=== PATIENT | female | born 1960 | race African-American/Black ===

== ENCOUNTER 2024-05-15 20:33 | Emergency (ER) | payer OTHER, MEDICAID ==
[~2024-05-15] VITALS: Ht 160 cm; Wt 61.0 kg
[2024-05-15 20:42] VITALS: O2SAT 100
[2024-05-15] MEDS ORDERED: ACETAMINOPHEN 325MG TABLET PO STA (21:58)
[2024-05-15 22:33] LABS: DIFFERENTIAL COMMENT 1; HEMATOCRIT. 35.1 % (36.0-48.0); HEMOGLOBIN. 11.4 g/dL (12.0-16.0); MEAN CORPUSCULAR HGB CONC 32.4 g/dL (31.0-37.0); MEAN CORPUSCULAR VOLUME 83.1 fL (81.0-99.0); MEAN PLATELET VOLUME 7.6 fl (7.4-10.4); PLATELET 253 x1000/uL (130-400); RED BLOOD CELL COUNT 4.23 mill/uL (4.2-5.4); RED CELL DISTRIBUTION WIDTH 15.4 % (11.6-14.6); WHITE BLOOD COUNT 6.8 x1000/uL (4.5-11.0)
[2024-05-15 22:40] LABS: CARBON DIOXIDE 18 mEq/L (21-32); CHLORIDE 108 mEq/L (98-107); SODIUM 135 mEq/L (136-145)
[2024-05-15 22:41] LABS: CALCIUM 8.5 mg/dL (8.7-10.4)
[2024-05-15 22:46] LABS: CREATININE 1.6 mg/dL (0.6-1.0); GLUCOSE 251 mg/dL (70-105); UREA NITROGEN BLOOD 20 mg/dL (9-23)
[2024-05-15 22:48] LABS: ALANINE AMINOTRANSFERASE 30 IU/L (10-49); ALBUMIN 4.1 g/dL (3.2-4.8); ASPARTATE AMINOTRANSFERASE 56 IU/L (<34); BILIRUBIN DIRECT 0.2 mg/dL (<=3.0); BILIRUBIN TOTAL 0.5 mg/dL (0.1-1.0); PROTEIN TOTAL 7.5 g/dL (6.0-8.3)
[2024-05-15 22:58] LABS: ANISOCYTOSIS 1+; PLATELET ESTIMATE NORMAL
[2024-05-16] MEDS: ACETAMINOPHEN 325MG TABLET PO NR (01:46)
[2024-05-16 01:48] VITALS: BP 130/88; PULSE 98; RESP 18; TEMP 98.9
== END 2024-05-16 01:50 | disposition home or self-care (01) ==
LOC: ER 20:33
DX: N17.9 Acute kidney failure, unspecified (principal); E11.9 Type 2 diabetes mellitus without complications; I10 Essential (primary) hypertension; Z20.822 Contact with and (suspected) exposure to COVID-19
CPT/HCPCS: 36415; 80048; 80076; 85025; 87426; 87804; 99283